=== PATIENT | male | born 1945 | race African-American/Black ===

== ENCOUNTER 2016-11-15 17:45 | Observation (INO) | payer OTHER ==
--- NOTE | ~2016-11-15 | HP ---
History And Physical [id number] [place]. [address] NAME: TONY FISHER BORN SR : 46 STATUS : ADM Kamala PAT#: [id number] AGE: 71 ADM/REG DATE : 11/15/16 MR#: [id number] REPORT SERV DATE: 11/16/16 DICTATED BY: MARIBEL PATRICK DATE: 11/16/16 REPORT STATUS : Draft TRANSCRIBED BY: MODL DATE: 11/16/16 DATE OF ADMISSION: 11/15/2016 SPRINKLER WORKER: Mariama Munoz M.D. CHIEF COMPLAINT: Chest pain and back pain. HISTORY OF PRESENT ILLNESS: Pleasant, black gentleman with known history of CAD, status post CABG twice with surgeries in the late and a redo in [address] Robison at which time he also had an aortic valve replaced with 23 mm pericardial valve. The patient confirms a personal history of one heart attack and possibly 3 stents most recently 08/[address] Covington at [facility]. Those records have been requested. The patient states that on 11/15 in the morning he developed some chest pain and back pain while at rest. He rates the chest pain a 5/10. At time of interview in the CPOU, he rates it a 3/10. It is not reproducible on exam or aggravated by movement or positioning. He reports associated shortness of breath and nausea with some belching. He denies any diaphoresis or dizziness. He reports that he vomited once prior to coming to the hospital and reports some radiation to his right shoulder. He did take aspirin, reports not having any nitroglycerin and he denies being on any platelet inhibitor such as Plavix, Brilinta or Effient following his stent. There is no exertional component expressed. The patient does report that he has a hiatal hernia. The patient denies any stressful or argumentative interaction. The patient confirms a personal history of one heart attack. Denies history of stroke, DVT, or PE. The patient denies any recent fever or chills. No palpitations. No syncopal episodes. Denies PND or orthopnea. Of note, the patient reports having had a stent placed to an unknown vessel by Dr. Covington, 08/2016 at [facility]. He states he was brought to this facility but given no beds he was taken to [facility]. It sounds as though he may have had a stress test first that led to the arteriogram. He does state that he went under a camera in calling [facility] to confirm any antiplatelet agent. The staff at [facility] on [facility] states that his Plavix written by Dr. Covington in 08/2016 was placed on hold by the patient. Attempts made to reach his son at [phone] with no answer to clarify medications. PAST MEDICAL HISTORY: 1. CAD. a. Reports GA x1. b. History of CABG twice 1989 and 2001 x3 with AVR 23 mm pericardial valve by Dr. Robison. 2. Hypertension. 3. Dyslipidemia. 4. Peripheral vascular disease with a stent to a lower extremity. 5. COPD. 6. Recently quit smoking per reports over the past three weeks but uses a nicotine patch 3 times weekly. History And Physical [address] [address] NAME: TONY FISHER BORN SR : 46 STATUS : ADM Kamala PAT#: [id number] AGE: 71 ADM/REG DATE : 11/15/16 MR#: [id number] REPORT SERV DATE: 11/16/16 DICTATED BY: MARIBEL PATRICK DATE: 11/16/16 REPORT STATUS : Draft TRANSCRIBED BY: MARILYN DATE: 11/16/16 PAST SURGICAL HISTORY: 1. CABG 1979 with repeat in 2001 for three vessels and aortic tissue valve replacement in 2001 as well. 2. Iliac stent. 3. Cholecystectomy. 4. Appendectomy. 5. Prostatectomy. SOCIAL HISTORY: The patient is . He states he has 6 children. He is retired. He does not exercise although he is signed up to begin cardiac rehab on 11/22. Reports quitting smoking 3 weeks ago. Has smoked for 50+ years throughout his life. Denies alcohol or illicits although he does occasionally smoke marijuana, most recently around 2015. FAMILY HISTORY: No clear embolic events reported in first-degree relatives. REVIEW OF SYSTEMS: A 14-point review of systems performed, significant for HPI including no blood pressure machine at home to check his blood pressure. Also seemingly on no additional anti-platelet agents since 08/2016 at which time he supposedly had another stent placed by Dr. Covington at [facility] and he has a script for Plavix on hold at [facility] written by Dr. Covington, 08/2016. Otherwise complete review of systems obtained and negative. ALLERGIES: LISINOPRIL, ANGIOEDEMA. CIPRO, SWELLING. HOME MEDICATIONS: Aspirin 81 mg daily, atorvastatin 40 mg nightly, carvedilol 25 mg twice daily, Catapres 0.1 mg twice daily, Reglan 10 mg a.c. and h.s. p.r.n., Protonix 40 mg twice daily, Paxil 20 mg daily, ranitidine 300 mg nightly, Ranexa 500 mg twice daily, Imdur 60 mg t.i.d., and Symbicort 2 puffs twice daily. PHYSICAL EXAMINATION: VITAL SIGNS: Blood pressure 158/71 after Apresoline, heart rate 54, respirations 18, temperature 98.4, O2 saturation 97% on room air, height 5 feet 5 inches, weight 132 pounds, BMI 22. GENERAL: Cooperative, in no apparent distress. Poor historian for healthcare. HEENT: Pupils 2 mm, sclera nonicteric. Nares patent. Moist mucous membranes. No xanthelasma. NECK: Trachea midline, no thyromegaly. No JVD. No bruits. LYMPH: No cervical lymphadenopathy. No supraclavicular lymphadenopathy. RESPIRATORY: Unlabored respirations. Breath sounds clear bilaterally to posterior auscultation. No wheezes or rhonchi. CARDIOVASCULAR: Regular rate. 2/6 murmur best audible at right sternal border with radiation to right carotid. No rub or gallop appreciated. Extremities without edema. Pulses 2+ bilaterally. Right DP pulse 1+, left 2+. ABDOMEN: Soft, nontender, nondistended, normal bowel sounds auscultated throughout. No organomegaly. SKIN: Warm, dry extremities. No pallor, or cyanosis. History And Physical [address] [address] NAME: TONY FISHER BORN SR : 46 STATUS : ADM Kamala PAT#: [id number] AGE: 71 ADM/REG DATE : 11/15/16 MR#: [id number] REPORT SERV DATE: 11/16/16 DICTATED BY: MARIBEL PATRICK DATE: 11/16/16 REPORT STATUS : Draft TRANSCRIBED BY: MARILYN DATE: 11/16/16 PSYCHIATRIC: Appropriate affect. Alert, oriented x3. LABORATORY DATA: Troponin 0.05, 0.05, and 0.04. Potassium 3.6, BUN 10, creatinine 1.21, glucose 116, magnesium 2.1. WBC 4.6, hemoglobin 12.5, hematocrit 38.1, platelet count 103,000. EKG, sinus rhythm, RBBB, LVH, anterior septal infarct. Echo, 03/2016: EF 50%. Mild diastolic dysfunction. Aortic sclerosis without stenosis. PCI, 08/[address] Covington at [facility]. Records requested. Cardiac cath, 08/15/[address] Kirkpatrick with prosthetic aortic valve with no significant gradient, EF 50% with apical aneurysm(no change consistent with 2013). Patent SHREYAS to right PDA, patent vein graft to diagonal, patent LAMBERT to LAD, but beyond anastomosis there is a 60 70% ISR relatively unchanged from 2013. Severely and diffusely diseased free radial to ramus, again unchanged from 2013. PCI, 08/07/[address] Covington, bare metal stent to mid LAD with no evidence of prior stress testing for that admission. ASSESSMENT AND PLAN: 1. Chest pain in patient with complex cardiac and medical history and multiple risk factors. The patient has been observed in the CPOU overnight with flat troponins of 0.05 and 0.04, n.p.o. for MPI today after blood pressure controlled, home if negative study, to follow up with his PCP and Dr. Munoz as appropriate if anything suggestive of ischemia. Cardiology referral will be initiated. 2. Coronary artery disease. Continue home medications. In calling local pharmacy, the patient's Plavix prescription written by Dr. Covington 08/2016 was placed on hold by the patient. We will provide prescription at discharge and patient counseled to remain on aspirin and Plavix until stopped by physician. 3. Hypertension, poorly managed. Resume home medications. 4. Dyslipidemia. Continue statin. 5. Medical noncompliance. Counseled regarding need to remain on Plavix and aspirin forever unless stopped by physician. 6. Murmur, echo 03/2016, EF 50%. Aortic sclerosis without stenosis. 7. Reports recently quit smoking for the last three weeks. Continues to use nicotine 3 days weekly. 8. Cardiac rehab. The patient is scheduled for cardiac rehab on 11/22. The patient was instructed to show up for that appointment and begin an exercise routine. SERAFIN/MARILYN Maribel Patrick, MSN, ATTENDING UROLOGIST-BC / [id number] History And Physical [address] [place]. [address] NAME: TONY FISHER BORN SR : 46 STATUS : ADM Kamala PAT#: [id number] AGE: 71 ADM/REG DATE : 11/15/16 MR#: [id number] REPORT SERV DATE: 11/16/16 DICTATED BY: MARIBEL PATRICK DATE: 11/16/16 REPORT STATUS : Draft TRANSCRIBED BY: MARILYN DATE: 11/16/16 CC: Maribel Patrick, DALILA, ATTENDING UROLOGIST-BC NICOLE Munoz M.D.
[2016-11-15 15:41] LABS: BASOPHILS 0.2 %; BASOPHILS ABSOLUTE 0.01 10/3/uL (0.0-0.16); EOSINOPHILS 1.8 %; EOSINOPHILS ABSOLUTE 0.08 10/3/uL (0.0-0.53); ER CBC TAT 0 Hrs 08 Mins; HEMOGLOBIN 12.5 g/dL (13.6-17.8); LYMPHOCYTES 47.3 %; LYMPHOCYTES ABSOLUTE 2.16 10/3/uL (0.67-4.30); MEAN CORPUS HGB CONC 32.8 g/dL (32.0-36.0); MEAN CORPUSCULAR HEMOGLOB 29.7 pg (26.0-34.0); MEAN PLATELET VOLUME 12.1 fL (9.2-13.0); MONOCYTES 10.9 %; NEUTROPHILS 39.8 %; NEUTROPHILS ABSOLUTE 1.82 10/3/uL (2.02-8.40); PLATELET COUNT 103 10/3/uL (150-400); RED CELL COUNT 4.21 10/6/uL (4.7-6.1); WHITE BLOOD CELLS 4.6 10/3/uL (4.5-10.5)
[2016-11-15 15:42] LABS: HEMATOCRIT 38.1 % (40.0-51.0); MANUAL DIFF NO %; MEAN CORPUSCULAR VOLUME 90.5 fL (80-100)
[2016-11-15 15:53] LABS: PARTIAL THROMBO TIME 30.9 SEC (22.5-37.2); PROTIME (NOT ORD) 13.3 SEC (12.0-14.5)
[2016-11-15 16:04] LABS: CALCIUM, SERUM 9.3 MG/DL (8.5-10.4); CHLORIDE, SERUM 108 MMOL/L (96-112); CO2 (CARBON DIOXIDE) 27 MMOL/L (24-34); CREATININE 1.21 MG/DL (0.70-1.30); GFR AFRICAN AMERICAN 70 ML/MIN (>=60); GFR NON AFRICAN AMERICAN 60 ML/MIN (>=60); GLUCOSE, SERUM 116 MG/DL (60-99); POTASSIUM, SERUM 3.6 MMOL/L (3.5-5.3); SODIUM, SERUM 142 MMOL/L (135-148)
[2016-11-15 16:05] LABS: BUN (BLOOD UREA NITROGEN) 10 MG/DL (6-23); CHEST PAIN PROFILE TAT 0 Hrs 32 Mins; TROPONIN I 0.05 NG/ML (<0.05)
[~2016-11-15 17:45] MED LIST: ADVAIR100 INH; ADVAIR230P INH; ADVAIR250 INH; ADVAIR250 PO; ALB4 PO; APRES25 PO; ASAB PO; CAT1 PO; COREG12 PO; COREG25 PO; COREG3 PO; CREON 20 OR; CRESTOR10 PO; DSS PO; FISH OIL1200 MG PO; FLEXERIL5 MG PO; FLONASE NAS; HALF81 PO; HCTZ12.5 PO; IMDUR30 PO; IMDUR60 PO; IPRA17AE INH; KAPIDEX60 MG PO; L40 PO; LIPITOR40 PO; LISINOPRIL40 MG PO; LOFIBRA54 MG PO; LORTAB10 PO; LOTREL1 CA5 PO; LYRICA100 MG PO; MAX25 PO; MAXIMUM D3 PO; MCZ25 PO; MIRALAXPKT PO; NITROQUICK0.4 MG SL; NITROSTAT0.4 MG SL; NORCO1 TA1 PO; NORV10 PO; NORV5 PO; NTG150 SL; OXYCOD PO; PANCRELIPASE OR; PAX20 PO; PAXIL40 MG PO; PLAVIX PO; PR25 PO; PREV30 PO; PRILOSEC40 MG PO; PRIN20 PO; PROAIR; PROAIR HFA INH; PROTONIX PO; PROZAC PO; RAN500 PO; REG; REG PO; REG5 PO; SIMCOR1 TAB PO; SINEQUAN 75 MG75 MG PO; SINGULAIR1 PO; SPIRO25 PO; SUCR PO; T PO; TEARS NATURA OPH; TEKTURNA300 MG PO; TRAN200 PO; TRANDAT100 PO; VISINE TEARS15 ML OPH; VOLTAREN1 % TOP; ZANTAC150 MG PO; ZESTRIL20 MG PO; ZESTRIL40 MG PO; ZOCOR20 PO
[2016-11-15] MEDS ORDERED: COREG25 PO (20:16)
[2016-11-15] MEDS ORDERED: HALF81 PO (20:16)
[2016-11-15] MEDS ORDERED: PAX20 PO (20:17)
[2016-11-15] MEDS ORDERED: CAT1 PO (20:17)
[2016-11-15] MEDS ORDERED: LIPITOR40 PO (20:17)
[2016-11-15] MEDS ORDERED: RANEXA1000 MG PO (20:18)
[2016-11-15] MEDS ORDERED: ZANTAC300 MG PO (20:18)
[2016-11-15] MEDS ORDERED: REG PO (20:19)
[2016-11-15] MEDS ORDERED: PROTONIX PO (20:19)
[2016-11-15] MEDS ORDERED: IMDUR60 PO (20:21)
[2016-11-15] MEDS ORDERED: SYMBICORT INH (20:22)
[2016-11-16] MEDS ORDERED: PLAVIX PO (16:56)
[2016-11-16] MEDS ORDERED: NTG150 SL (16:58)
[2017-03-07] MEDS ORDERED: SUCR PO (08:57)
[2017-03-07] MEDS ORDERED: NITROSTAT0.4 MG SL (09:01)
[2017-03-07] MEDS ORDERED: CAT1 PO (09:01)
[2017-03-13] MEDS ORDERED: NORV5 PO (17:13)
[2017-03-13] MEDS ORDERED: CAT2 PO (17:17)
[2017-03-13] MEDS ORDERED: IMDUR60 PO (17:18)
[2017-03-13] MEDS ORDERED: HYDRALAZINE100 MG PO (17:21)
[2017-05-04] MEDS ORDERED: HALF81 PO (15:49)
[2017-05-04] MEDS ORDERED: SUCR PO (15:51)
[2017-05-04] MEDS ORDERED: NORV5 PO (15:53)
[2017-05-04] MEDS ORDERED: PLAVIX PO (15:54)
[2017-05-04] MEDS ORDERED: IMDUR60 PO (15:54)
[2017-05-04] MEDS ORDERED: PROTONIX PO (15:55)
[2017-05-04] MEDS ORDERED: CAT2 PO (15:56)
[2017-05-04] MEDS ORDERED: HYDRALAZINE100 MG PO (15:56)
[2017-05-04] MEDS ORDERED: LIPITOR40 PO (15:57)
[2017-05-04] MEDS ORDERED: PAX20 PO (15:57)
[2017-05-04] MEDS ORDERED: RANITIDINE300 MG PO (15:58)
[2017-05-04] MEDS ORDERED: NITROQUICK0.4 MG SL (16:00)
[2017-05-04] MEDS ORDERED: RANEXA1000 MG PO (16:03)
[2017-05-11] MEDS ORDERED: T PO ×2 (10:27→10:28)
[2017-05-11] MEDS ORDERED: LEVSINTAB SL (10:29)
[2017-05-11] MEDS ORDERED: REG5 PO (10:30)
== END 2016-11-16 16:58 | disposition home or self-care (01) ==
LOC: ER 17:45 → CDU1 20:57
PROVIDERS: Emergency Medicine
DX: R07.89 Other chest pain (principal); I25.10 Atherosclerotic heart disease of native coronary artery without angina pectoris; I10 Essential (primary) hypertension; E78.5 Hyperlipidemia, unspecified; I25.2 Old myocardial infarction; Z95.1 Presence of aortocoronary bypass graft; I73.9 Peripheral vascular disease, unspecified; J44.9 Chronic obstructive pulmonary disease, unspecified; Z87.891 Personal history of nicotine dependence; Z90.49 Acquired absence of other specified parts of digestive tract; Z98.890 Other specified postprocedural states; Z88.8 Allergy status to other drugs, medicaments and biological substances; Z79.82 Long term (current) use of aspirin; Z79.899 Other long term (current) drug therapy
CPT/HCPCS: 71020; 78452; 80048; 83735; 84484; 85025; 85610; 85730; 93005; 93017; 96374; 96375; 96376; 99285; A9270-GY; A9502; G0378; J0153; J0360; J2405

== ENCOUNTER 2016-12-11 20:49 | Inpatient (IN) | payer OTHER ==
--- NOTE | ~2016-12-11 | CN ---
Consultation Report [facility] [address] [place]. [address] NAME: TONY MEDELLIN BORN SR : 46 STATUS : ADM IN PAT#: [id number] AGE: 71 ADM/REG DATE : 12/11/16 MR#: [id number] REPORT SERV DATE: 12/13/16 DICTATED BY: DAY COULTER DATE: 12/12/16 REPORT STATUS : Draft TRANSCRIBED BY: MODIsabel DATE: 12/12/16 CARDIOLOGY CONSULTATION NOTE DATE OF CONSULTATION: 12/12/2016 PRIMARY TEXTILE ENGINEER: Dr. Munoz. CHIEF COMPLAINT: "Can't breathe." REASON FOR CONSULTATION: Abnormal troponin. SOURCE: The patient and the chart. HISTORY OF PRESENT ILLNESS: Mr. Medellin is a very pleasant 71-year-old black man with history of coronary artery disease and aortic valve disease, status post coronary artery bypass grafting and a bioprosthetic aortic valve replacement in [address] Robison at [facility]. He has also had stents since then. His most recent catheterization was in August 2016 at [facility] and he was treated medically. He was in his usual state of health until last night when he "could not breathe." He came to [facility] and was admitted for further care. He has had some wheezing, coughing, and producing clear sputum and increasing shortness of breath over the last few days. He has not had any swelling. He did have sweats one night. He did have right-sided chest pain, described as dull, 8/10 in severity radiating to the right arm, lasting hours at a time. No syncope or dizziness. No temperature. REVIEW OF SYSTEMS: All other systems are negative. ALLERGIES: LISINOPRIL CAUSED ANGIOEDEMA. CIPROFLOXACIN. MEDICATIONS: At home included aspirin, atorvastatin, carvedilol, clonidine, Plavix, isosorbide, metoclopramide, pantoprazole, paroxetine, ranitidine, and Ranexa. CARDIAC RISK FACTORS: Hypertension, cholesterol, former tobacco. Denies diabetes or family history. SOCIAL HISTORY: The patient lives in [place]. He is . He has six children, alive and well. He is retired. FAMILY HISTORY: Negative for coronary artery disease at young age. PAST MEDICAL HISTORY: Significant for coronary artery disease, status post coronary bypass grafting and aortic valve replacement, bioprosthetic [address] Robison, two stents; last catheterization in October 2015 at [facility]. Results not available. The patient reports Consultation Report [place] [address] [place]. [address] NAME: TONY MEDELLIN SR : 46 STATUS : ADM IN PAT#: [id number] AGE: 71 ADM/REG DATE : 12/11/16 MR#: [id number] REPORT SERV DATE: 12/13/16 DICTATED BY: DAY COULTER DATE: 12/12/16 REPORT STATUS : Draft TRANSCRIBED BY: MODIsabel DATE: 12/12/16 that he was treated medically. Prostate surgery for cancer, reportedly in remission in 1999. Neck surgery with screws. Lymph node removal. Status post appendectomy. He has other medical problems detailed in Dr. Lexx Parikh's note including congestive heart failure, renal artery stenosis with stent placement, rheumatoid arthritis, nephrolithiasis, benign prostatic hypertrophy, pancreatitis, hypothyroidism, thoracic aortic aneurysm, and KADY inhibitor induced angioedema; peripheral artery disease, status post angioplasty and stent placement in the legs, per Dr. Guerin; multiple GI bleed with peptic ulcer disease, colitis, colon polyps, and a Megan-Fleming tear, per Dr. Clement. PHYSICAL EXAMINATION: GENERAL: He is a well-developed, well-nourished, elderly black man, in no acute distress. VITAL SIGNS: Blood pressure 179/91, pulse 78, temperature 98.4, weight is 60 kg, height is 165 cm. HEENT: Sclerae anicteric. Lips without cyanosis. Carotids 2+ and symmetrical with healed surgical scars posterior midline. NECK: No JVD. No thyromegaly. LUNGS: Few rhonchi, rales at the bases. No use of accessory muscles. HEART: Regular rate and rhythm with 2/6 systolic murmur. No heaves or thrills. ABDOMEN: Positive bowel sounds. Soft, nontender. EXTREMITIES: Pulses 2+ and symmetrical. No cyanosis, clubbing, or edema. BACK: No CVA tenderness. MUSCULOSKELETAL: Good tone. NEURO: Alert and oriented x3. IMAGING: EKG reveals sinus rhythm with PACs, right bundle-branch block, left anterior fascicular block, LVH with strain. This appears similar to EKG in October 2016. The echocardiogram reveals borderline left ventricular systolic function, LVEF of 50%, moderate LVH, normal RV chamber size and systolic function, mild aortic stenosis, and mild aortic insufficiency and mild aortic stenosis. LABORATORY EXAMINATION: We also have the laboratory examination which included the urinalysis. Specific gravity of 1.011, pH 6.0 dip negative with a CPK 118, MB 4.7. Troponin I of 1.2. The chest x-ray revealing pulmonary edema, significantly improved, residual vascular congestion, and residual small effusions. The BNP level of 1943, the procalcitonin of 1.54. The sodium 142, potassium 3.7, chloride 105, CO2 of 28, glucose 145, BUN 13, creatinine 1.16. TSH of 1.18. The white count is 6.3, hemoglobin 12.9, hematocrit 38.3, platelets 134,000. INR 1.1. Blood gas; pH 7.41, pCO2 of 42, pO2 of 73, and oxygen saturation 94%. Strep pneumonia antigen negative. Legionella antigen urine negative. IMPRESSION: 1. Hypertensive urgency. Consultation Report [address] [address] NAME: TONY MEDELLIN BORN SR : 46 STATUS : ADM IN [facility]#: [id number] AGE: 71 ADM/REG DATE : 12/11/16 MR#: [id number] REPORT SERV DATE: 12/13/16 DICTATED BY: DAY COULTER DATE: 12/12/16 REPORT STATUS : Draft TRANSCRIBED BY: MARILYN DATE: 12/12/16 2. Pulmonary edema, improving with diuresis. 3. History of coronary artery disease, status post coronary artery bypass grafting and angioplasty and stenting. 4. Small elevation of troponin with normal CPK and MB of unclear significance. 5. Status post bioprosthetic aortic valve replacement in 2001 with his coronary artery bypass grafting operation. Only mild aortic stenosis and aortic insufficiency by most recent echo. 6. Left ventricular ejection fraction of 50% by most recent echo. 7. History of renal artery stenosis, status post angioplasty and stenting. 8. History of peripheral vascular disease. 9. Remote prostate cancer. 10.Cardiac risk factors including hypertension, cholesterol, and former tobacco. RECOMMENDATIONS: 1. Diuresis with IV Lasix as you are doing. 2. Evaluate for possible infection. 3. Check renal artery ultrasound to look for any evidence of renal artery stenosis. 4. Check serial EKGs and enzymes. 5. Control blood pressure. 6. Echocardiogram already done. BN/MODL Day Coulter M.D. / [id number] CC: Alex Gabriel M.D.
--- NOTE | ~2016-12-11 | HP ---
History And Physical [address] [place]. [address] NAME: TONY FISHER BORN SR : 46 STATUS : ADM IN [facility]#: [id number] AGE: 71 ADM/REG DATE : 12/11/16 MR#: [id number] REPORT SERV DATE: 12/12/16 DICTATED BY: CLARISSE ABDALLA DATE: 12/12/16 REPORT STATUS : Draft TRANSCRIBED BY: MODL DATE: 12/12/16 DATE OF ADMISSION: 12/11/2016 CHIEF COMPLAINT: A 71-year-old male presenting with increasing shortness of breath. HISTORY OF PRESENT ILLNESS: The patient's history was obtained through careful interview with the patient, coupled with review of [facility] medical records. The patient, just on the day prior to admission, began to develop increasing shortness of breath characterized both by dyspnea on exertion as well as orthopnea, paroxysmal nocturnal dyspnea, and a cough productive of a clear sputum. He describes both abdominal pain and chest discomfort, but both of these seem to be exacerbated by coughing. The chest pain is a sharp midchest pain without radiation, 6/10 severity, and the abdominal pain is in his epigastric area in the middle, a soreness quality, 4/10 severity. No lower extremity edema is appreciated. No abdominal swelling. No confusion, but he has felt lightheaded. No fevers or chills. REVIEW OF SYSTEMS: Otherwise, a 14-point review of systems was obtained and was negative. PAST MEDICAL HISTORY: 1. COPD. 2. Coronary artery disease, status post CABG and history of stents, followed by [facility]. 3. Elevated cholesterol. 4. Hypertension. 5. Peripheral arterial disease with leg stent placement under the care of Dr. Guerin. 6. Multiple GI bleeds with peptic ulcer disease, colitis, colon polyps, a Megan-Fleming. Seen by Dr. Clement. 7. Aortic valve replacement with tissue valve. 8. Systolic congestive heart failure, history of ejection fraction 45%. 9. Renal artery stenosis with stent placement. 10.Rheumatoid arthritis. 11.Nephrolithiasis. 12.Benign prostatic hypertrophy. 13.Pancreatitis. 14.Subclinical hypothyroidism. 15.Neuropathy. 16.Thoracic aortic aneurysm, 4 cm. 17.KADY inhibitor-induced angioedema. PAST SURGICAL HISTORY: History And Physical [address] [place]. [address] NAME: TONY FISHER BORN SR : 46 STATUS : ADM IN PAT#: [id number] AGE: 71 ADM/REG DATE : 12/11/16 MR#: [id number] REPORT SERV DATE: 12/12/16 DICTATED BY: CLARISSE ABDALLA DATE: 12/12/16 REPORT STATUS : Draft TRANSCRIBED BY: MODL DATE: 12/12/16 1. CABG in 1989 with a redo in 2001. 2. Cholecystectomy. 3. Appendectomy. 4. Prostatectomy/TURP. 5. Knee surgery. 6. Tissue aortic valve replacement. 7. Penile prosthesis. 8. Neck lymph node dissection. ALLERGIES: KADY INHIBITOR CAUSES ANGIOEDEMA AND THE PATIENT HAS AN ALLERGY TO CIPRO. SOCIAL HISTORY: Quit smoking in 2013. Quit alcohol in 2006. He started smoking when he was only 14 years old. He lives alone right now. His about two years ago. He used to drive a truck. He does smoke marijuana. He has six children, they all seem to live locally. FAMILY HISTORY: Father and brother with heart disease. CURRENT MEDICATIONS: Include aspirin 81 mg p.o. daily, Lipitor 40 mg p.o. daily, Coreg 25 mg p.o. b.i.d., clonidine 0.1 mg p.o. b.i.d., Plavix 75 mg p.o. daily, Reglan 10 mg p.o. at bedtime and before meals as needed, isosorbide mononitrate 60 mg p.o. t.i.d., Protonix 40 mg p.o. daily, Paxil 20 mg p.o. daily, Zantac 300 mg p.o. q.h.s., Ranexa 1000 mg p.o. b.i.d. PHYSICAL EXAMINATION: VITAL SIGNS: Temperature 98.2, pulse 117, blood pressure 240/139, respiratory rate 35, O2 saturation 100% on 15 L nasal cannula. GENERAL: An ill-appearing male with respiratory distress. HEENT: Pupils equal, round, and reactive to light. No conjunctival pallor. No scleral icterus. Nares are patent. Oropharynx is clear of obstruction. Moist mucous membranes. NECK: Trachea midline. No thyromegaly. LYMPH: No cervical lymphadenopathy. No supraclavicular lymphadenopathy. RESPIRATORY: The patient has a complicated respiratory examination. It does seem that he has dense wet rales at the base of lungs, but also scattered expiratory wheezes, prolonged expiratory phase, harsh upper respiratory rhonchi, and a very labored respiratory effort. CARDIOVASCULAR: Tachycardic, regular rhythm. No murmurs, rubs, or gallops. No current extremity edema is appreciated. ABDOMEN: Flat, nontender, nondistended. No hepatosplenomegaly. DERMATOLOGICAL: Warm and dry extremities. No pallor, no cyanosis. PSYCHIATRIC: Normal affect. Good mood. Alert and oriented x3. LABORATORY DATA: Brain natriuretic peptide 926. Troponin 0.05. INR 1.0. White blood cell count 7.3, hemoglobin 14, hematocrit 44, platelets 141. Sodium 142, potassium 4.2, chloride 107, bicarb 25, BUN 12, creatinine 0.49, glucose 171. ABG demonstrates pH 7.27, a PaCO2 of 44, a PaO2 of 316, and a bicarb of 19 on oxygen. STUDIES: Chest x-ray by my own evaluation shows cardiomegaly, pulmonary edema, bilateral effusions right greater than left, cephalization, there are also COPD changes. History And Physical [address] [place]. [address] NAME: TONY FISHER BORN SR : 46 STATUS : ADM IN [facility]#: [id number] AGE: 71 ADM/REG DATE : 12/11/16 MR#: [id number] REPORT SERV DATE: 12/12/16 DICTATED BY: CLARISSE ABDALLA DATE: 12/12/16 REPORT STATUS : Draft TRANSCRIBED BY: MARILYN DATE: 12/12/16 ASSESSMENT AND PLAN: 1. Hypoxic respiratory failure. Place on BiPAP in the IMCU. 2. Chronic obstructive pulmonary disease exacerbation. Place on IV Solu-Medrol, duo nebulizers, doxycycline. 3. Systolic congestive heart failure exacerbation, history of ejection fraction 45%. Recheck an echocardiogram to define function. Continue Coreg. Place on IV diuretic. Hold KADY inhibitor and ARB secondary to angioedema. 4. Hypertensive urgency. Use p.r.n. medications. Provide supportive care. 5. Aortic valve replacement with tissue valve. Check an echocardiogram. HILL/MARILYN Clarisse Abdalla M.D. / [id number] CC: Alex Gabriel M.D. [facility]
--- NOTE | ~2016-12-11 | DS ---
Discharge Summary [facility] [address] [place]. [address] NAME: TONY FISHER BORN SR : 46 STATUS : DIS IN PAT#: [id number] AGE: 71 ADM/REG DATE : 12/11/16 MR#: [id number] REPORT SERV DATE: 12/17/16 DICTATED BY: HARDEEP SAM DATE: 12/16/16 REPORT STATUS : Draft TRANSCRIBED BY: MODL DATE: 12/16/16 ADMISSION DATE: 12/11/2016 DISCHARGE DATE: 12/16/2016 CONDITION ON DISCHARGE: Stable. DISPOSITION: Discharged to home. ADVICE ON DISCHARGE: To follow up with Dr. Shepard, Vascular Surgery, next week on 12/19/2016 for bilateral renal stent placement. The patient is a candidate for bilateral renal artery stent placement as he has bilateral renal artery stenosis. DIAGNOSES ON DISCHARGE: 1. Uncontrolled hypertension/difficult to control hypertension - the patient is on multiple high doses of antihypertensive medications right now. Part of this is definitely because of bilateral renal artery stenosis. The patient is scheduled for stenting next week by Dr. Shepard in his office. I have spoken with Dr. Shepard and he says it is okay for the patient to continue taking Plavix as of now. His medications on discharge will be dictated in the following paragraphs. 2. Chronic diastolic heart failure. 3. Coronary artery disease, status post coronary artery bypass graft and history of stenting - stable at this time. His troponin Is are coming down and he is only for medical management per Cardiology right now. 4. Chronic obstructive pulmonary disease. 5. Elevated cholesterol. 6. Peripheral arterial disease, status post stent placement in the leg. 7. History of gastrointestinal bleed in the past. 8. History of aortic valve replacement with tissue valves. 9. History of systolic congestive heart failure also with an ejection fraction of 45% in the past even though it has improved to 50% now. 10.Rheumatoid arthritis. 11.Nephrolithiasis. 12.Benign prostatic hypertrophy. The patient is also not a candidate for KADY inhibitor or ARB therapy secondary to angioedema secondary to both of these medications. BRIEF HOSPITAL COURSE: The patient is a 71-year-old male patient who was admitted with signs and symptoms as outlined in history and physical exam. Essentially, he was admitted with shortness of breath, started on diuretics, and supportive and symptomatic therapy. Cardiology was consulted. As he did complain of chest discomfort, he was started on therapy for managing coronary artery disease conservatively, on med management only as of now. The patient underwent an echocardiogram that shows an ejection fraction of 50% as of now. Discharge Summary [facility] [address] [place]. [address] NAME: TONY FISHER BORN SR : 46 STATUS : DIS IN PAT#: [id number] AGE: 71 ADM/REG DATE : 12/11/16 MR#: [id number] REPORT SERV DATE: 12/17/16 DICTATED BY: HARDEEP SAM DATE: 12/16/16 REPORT STATUS : Draft TRANSCRIBED BY: MODIsabel DATE: 12/16/16 The patient also has had difficulty controlling his blood pressure and has been on multiple medications for this, and at this time, we will have to go ahead and continue adjusting his medicine until he receives his bilateral renal artery stenting, which will happen next week. For now, his blood pressure is under fairly good control with the current regimen of medications and he is being sent on the following medications. New medications that he will be on include: Aldactone 25 mg once a day, hydralazine 25 mg p.o. t.i.d., Norvasc or amlodipine 10 mg once a day and increasing his Imdur 60 mg tablets to two pills twice a day or 120 mg p.o. b.i.d. The medication that has been discontinued include clonidine patch and also clonidine. He will continue his Coreg 25 mg p.o. b.i.d. also as of now. The patient will also continue his Lipitor 40 mg once a day, Paxil 20 mg once a day, Plavix 75 mg once a day, potassium 10 mEq once a day, Protonix 40 mg p.o. b.i.d., and Ranexa 500 mg ER tablet 1000 mg p.o. b.i.d. The most recent labs I have on this patient include the following: His CBC today shows a WBC count of 6.2, hemoglobin 12.6, hematocrit 37, and platelet count of 151. His electrolyte profile shows a sodium of 142, potassium 3.9, BUN 18, and creatinine 1.2. Consults obtained during hospitalization include consultation by Dr. Adam Hayes for renal artery stenosis and he suggested bilateral renal stent placement and also consultation by Cardiology at this time. The most recent echocardiogram that this patient had shows the following: His ejection fraction is estimated at 50%. He does have borderline left ventricular systolic function. The patient does have moderate LVH, normal right ventricular chamber size and systolic function, and mild aortic sclerosis and mild aortic stenosis. On the day of discharge, he is asymptomatic, he is chest pain-free, and he is able to ambulate without getting short of breath. He is ambulatory in hallways and within his room and feels well enough to go home, and hence, he is being discharged on the following medications with advice to follow up with Dr. Shepard next week for bilateral renal artery stenting as above. I have spent about 40 minutes in coordinating discharge care of this patient including face- to-face encounter and summarizing this discharge. GIOVANNA/MARILYN Hardeep Sam M.D. / [id number] CC: Hardeep Sam M.D.
--- NOTE | ~2016-12-11 | CN ---
Consultation Report [facility] [address] [place]. [address] NAME: TONY MEDELLIN BORN SR : 46 STATUS : ADM IN PAT#: [id number] AGE: 71 ADM/REG DATE : 12/11/16 MR#: [id number] REPORT SERV DATE: 12/15/16 DICTATED BY: DIAZ SINGLETON DATE: 12/15/16 REPORT STATUS : Draft TRANSCRIBED BY: MODL DATE: 12/15/16 DATE OF CONSULTATION: 12/15/2016 REASON FOR CONSULT: Renal artery stenosis. HISTORY OF PRESENT ILLNESS: Mr. Medellin is a very pleasant 71-year-old male with complicated medical history as outlined below. He has had previous bypass surgery and AVR with an EF of 45%, COPD with ongoing tobacco abuse, and previous PAD with right iliac stent placement. He also has a history of a 4 cm thoracic artery aneurysm. His vascular surgeon is Dr. Guerin. He denies previous knowledge of renal artery stents, although it is listed in previous histories and physicals in the medical record. Briefly, he was admitted here on 12/11/2016 with volume overload. He was treated for CHF and COPD exacerbations. He required BiPAP initially and is significantly much improved. He underwent cardiac catheterization in this admission, which showed occluded LAMBERT and open SHREYAS-medical management. He is now out on the floor on [address] [place] [address]. As part of a workup for ongoing [id number] hypertension, Doppler renal artery ultrasound was done on 12/13/2016, which showed right kidney at 9.2 cm with RAR 4.6, PSV 284 cm/second and resistive index of 0.78. Left kidney 9.1 cm, RAR 5.7, PSV 352 cm/second, and RI 0.80. Nephrology is consulted for renal artery stenosis management. PAST MEDICAL HISTORY: 1. CABG, 1979 and 2001. EF 45%. 2. COPD with ongoing tobacco abuse. 3. Hypertension. 4. Hyperlipidemia. 5. Peripheral vascular disease with right iliac stent. 6. AVR in 1999. 7. Rheumatoid arthritis per chart. 8. Prostate cancer. 9. Thoracic and aortic aneurysm. 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 CURRENT MEDICATIONS: Include Norvasc 10 mg a day, aspirin, Lipitor, Coreg, Catapres patch #3, Plavix, sliding-scale insulin, Ranexa, Paxil, Protonix, and Imdur. FAMILY HISTORY: No ESRD. SOCIAL HISTORY: He is a , retired. Continues to smoke and lives in [place]. REVIEW OF SYSTEMS: Significant for events as per HPI. PHYSICAL EXAMINATION: VITAL SIGNS: Temperature 97.4, pulse 56, respirations 18, blood pressure 127/58, 95% Consultation Report [address] [place]. [address] NAME: TONY MEDELLIN BORN SR : 46 STATUS : ADM IN LOCATED WITHIN [facility]#: [id number] AGE: 71 ADM/REG DATE : 12/11/16 MR#: [id number] REPORT SERV DATE: 12/15/16 DICTATED BY: DIAZ SINGLETON DATE: 12/15/16 REPORT STATUS : Draft TRANSCRIBED BY: MARILYN DATE: 12/15/16 saturation on room air. GENERAL: He is a pleasant male, awake, alert, oriented, and cooperative with the exam. He is in no distress. Good historian. Sclerae without icterus. Conjunctivae not injected. Oropharynx is clear. No JVD. He has diffuse bilateral rhonchi without dyspnea or tachypnea at rest on room air. HEART: Rate bradycardic, rhythm regular, 2/6 murmur. ABDOMEN: Soft, nontender, and nondistended. Bowel sounds present throughout without rebound, guarding, peritoneal signs. EXTREMITIES: Showed no edema. SKIN: Shows no rash. There is no Hardwick catheter in place. MUSCULOSKELETAL: Shows no active tenosynovitis or gout. Mood and affect are appropriate. LABORATORY DATA: Sodium 143, potassium 3.9, bicarbonate 25, BUN 17, creatinine 1.1, GFR 64 mL/minute, calcium 9.1, albumin 3.4. Urinalysis shows no blood or protein. BNP 1943, white count 11.2 thousand, hemoglobin 13.2, platelets 166,000. ASSESSMENT AND PLAN: Mr. Medellin has hypertension, probable chronic kidney disease stage 2, renal artery stenosis, chronic obstructive pulmonary disease with ongoing tobacco abuse, atherosclerotic cardiovascular disease with previous CABG and AVR, ejection fraction 45%, peripheral artery disease, and thoracic aortic aneurysm. Recommend vascular consultation with Dr. Guerin. I suspect Mr. Medellin most likely needs renal arteriogram and intervention on his bilateral renal artery stenosis to help improve blood pressure control. He is on Plavix and we will defer to vascular whether or not to proceed with inpatient versus outpatient workup. We will be available as needed, we will sign off. Please call back if problems, questions, or concerns. Thank you for consult. PARVIZ/MARILYN Diaz Singleton M.D. / [id number] CC: Nancie Ospina M.D.
[~2016-12-11 20:49] MED LIST changes: +RANEXA1000 MG PO; +SYMBICORT INH; +ZANTAC300 MG PO
[2016-12-11 21:29] LABS: BE (BASE EXCESS) -6.9 MEQ/L (0 +/- 2.5); CARBOXYHEMOGLOBIN 2.3 % (0-3); DEVICE NRB; HCO3 (ACTUAL BICARBONATE) 19.8 MEQ/L (23-27); HEMOBLOGIN CONTENT 13.8 G/DL (14-18); INSTRUMENT SERIAL # 8087; METHEMOGLOBIN 0.3 % (0-3); O2 CONTENT 19.6 VOL% (18-24); PCO2 (CO2 TENSION) 44 MMHG (35-45); PO2 (O2 TENSION) 316 MMHG (79-93); SAMPLE Arterial; pH 7.27 (7.37-7.43)
[2016-12-11 21:32] LABS: BASOPHILS 0.4 %; BASOPHILS ABSOLUTE 0.03 10/3/uL (0.0-0.16); EOSINOPHILS 3.6 %; EOSINOPHILS ABSOLUTE 0.26 10/3/uL (0.0-0.53); ER CBC TAT 0 Hrs 15 Mins; HEMATOCRIT 43.7 % (40.0-51.0); HEMOGLOBIN 14.5 g/dL (13.6-17.8); IMMATURE GRANULOCYTES 0.3 %; IMMATURE GRANULOCYTES ABSOLUTE 0.02 10/3/uL (0.0-0.11); LYMPHOCYTES 62.1 %; LYMPHOCYTES ABSOLUTE 4.52 10/3/uL (0.67-4.30); MANUAL DIFF NO %; MEAN CORPUS HGB CONC 33.2 g/dL (32.0-36.0); MEAN CORPUSCULAR HEMOGLOB 30.6 pg (26.0-34.0); MEAN CORPUSCULAR VOLUME 92.2 fL (80-100); MEAN PLATELET VOLUME 12.8 fL (9.2-13.0); MONOCYTES 7.6 %; MONOCYTES ABSOLUTE 0.55 10/3/uL (0.21-1.20); PLATELET COUNT 141 10/3/uL (150-400); RBC DISTRIBUTION WIDTH 15.6 % (12.0-16.0); RED CELL COUNT 4.74 10/6/uL (4.7-6.1); WHITE BLOOD CELLS 7.3 10/3/uL (4.5-10.5)
[2016-12-11] MEDS ORDERED: COREG25 PO (21:36)
[2016-12-11] MEDS ORDERED: PROTONIX PO (21:37)
[2016-12-11] MEDS ORDERED: HALF81 PO (21:37)
[2016-12-11] MEDS ORDERED: ZANTAC300 MG PO (21:37)
[2016-12-11] MEDS ORDERED: LIPITOR40 PO (21:37)
[2016-12-11 21:38] LABS: PARTIAL THROMBO TIME 27.6 SEC (22.5-37.2); PROTIME (NOT ORD) 13.2 SEC (12.0-14.5)
[2016-12-11] MEDS ORDERED: RANEXA1000 MG PO (21:38)
[2016-12-11] MEDS ORDERED: REG PO (21:38)
[2016-12-11] MEDS ORDERED: PLAVIX PO (21:38)
[2016-12-11] MEDS ORDERED: CAT1 PO (21:38)
[2016-12-11] MEDS ORDERED: IMDUR60 PO (21:39)
[2016-12-11] MEDS ORDERED: PAX20 PO (21:39)
[2016-12-11] MEDS ORDERED: *UNABLE3 (21:41)
[2016-12-11 21:53] LABS: PLATELET ESTIMATE SLT DEC (ADEQUATE); TEARDROP SHAPED RBCS FEW (3-10/OIF)
[2016-12-11 21:54] LABS: BURR CELLS 1+ (3-10/OIF) (0-2/OIF)
[2016-12-11 22:11] LABS: BUN (BLOOD UREA NITROGEN) 12 MG/DL (6-23); CALCIUM, SERUM 8.9 MG/DL (8.5-10.4); CHLORIDE, SERUM 107 MMOL/L (96-112); CO2 (CARBON DIOXIDE) 25 MMOL/L (24-34); CREATININE 1.49 MG/DL (0.70-1.30); GFR AFRICAN AMERICAN 54 ML/MIN (>=60); GFR NON AFRICAN AMERICAN 47 ML/MIN (>=60); SODIUM, SERUM 142 MMOL/L (135-148)
[2016-12-11 22:12] LABS: GLUCOSE, SERUM 171 MG/DL (60-99); POTASSIUM, SERUM 4.2 MMOL/L (3.5-5.3)
[2016-12-11 22:14] LABS: CHEST PAIN PROFILE TAT 0 Hrs 57 Mins; TROPONIN I 0.05 NG/ML (<0.05)
[2016-12-11 22:47] LABS: D-DIMER QUANTITATIVE 2.27 ug/mLFEU (< 0.50)
[2016-12-12 04:09] LABS: BE (BASE EXCESS) 1.2 MEQ/L (0 +/- 2.5); BIPAP 16/5 cm.H2O; CARBOXYHEMOGLOBIN 1.7 % (0-3); HEMOBLOGIN CONTENT 13.7 G/DL (14-18); INSTRUMENT SERIAL # 8083; METHEMOGLOBIN 0.3 % (0-3); O2 CONTENT 17.8 VOL% (18-24); OPERATOR ID 14661; PCO2 (CO2 TENSION) 42 MMHG (35-45); PO2 (O2 TENSION) 73 MMHG (79-93); SAMPLE Arterial; pH 7.41 (7.37-7.43)
[2016-12-12 04:17] LABS: BASOPHILS 0.2 %; BASOPHILS ABSOLUTE 0.01 10/3/uL (0.0-0.16); EOSINOPHILS 0 %; HEMOGLOBIN 12.9 g/dL (13.6-17.8); IMMATURE GRANULOCYTES 0.2 %; IMMATURE GRANULOCYTES ABSOLUTE 0.01 10/3/uL (0.0-0.11); LYMPHOCYTES 12.8 %; MEAN CORPUS HGB CONC 33.7 g/dL (32.0-36.0); MEAN CORPUSCULAR HEMOGLOB 30.2 pg (26.0-34.0); MEAN CORPUSCULAR VOLUME 89.7 fL (80-100); MEAN PLATELET VOLUME 11.9 fL (9.2-13.0); MONOCYTES 2.2 %; MONOCYTES ABSOLUTE 0.14 10/3/uL (0.21-1.20); NEUTROPHILS 84.6 %; PLATELET COUNT 134 10/3/uL (150-400); RBC DISTRIBUTION WIDTH 15.7 % (12.0-16.0); RED CELL COUNT 4.27 10/6/uL (4.7-6.1); WHITE BLOOD CELLS 6.3 10/3/uL (4.5-10.5)
[2016-12-12 04:21] LABS: HEMATOCRIT 38.3 % (40.0-51.0); MANUAL DIFF NO %
[2016-12-12 04:25] LABS: INTERNATIONAL NORMAL RATI 1.1 UNITS (-); PROTIME (NOT ORD) 13.8 SEC (12.0-14.5)
[2016-12-12 04:42] LABS: A/G RATIO 0.9 (0.7-1.9); ALBUMIN 3.4 G/DL (3.5-5.0); BUN (BLOOD UREA NITROGEN) 13 MG/DL (6-23); CALCIUM, SERUM 8.9 MG/DL (8.5-10.4); CHLORIDE, SERUM 105 MMOL/L (96-112); CO2 (CARBON DIOXIDE) 28 MMOL/L (24-34); CREATININE 1.16 MG/DL (0.70-1.30); GFR AFRICAN AMERICAN 74 ML/MIN (>=60); GFR NON AFRICAN AMERICAN 63 ML/MIN (>=60); GLOBULIN 3.8 G/DL (2.5-4.1); GLUCOSE, SERUM 145 MG/DL (60-99); POTASSIUM, SERUM 3.7 MMOL/L (3.5-5.3); SGOT(AST) 38 U/L (5-40); SGPT(ALT) 36 U/L (5-65); SODIUM, SERUM 142 MMOL/L (135-148); TOTAL PROTEIN 7.2 G/DL (6.0-8.5)
[2016-12-12 04:44] LABS: ALKALINE PHOSPHATASE 163 U/L (45-117)
[2016-12-12 04:58] LABS: PROCALCITONIN 1.54 ng/mL (<0.5)
[2016-12-12 12:02] LABS: CK-MB 4.7 NG/ML; CPK 118 U/L (0-200)
[2016-12-12] MEDS ORDERED: DUONEB INH (13:39)
[2016-12-12 18:35] LABS: WBC (NOT ORDERED) (RFLEX) 0 (0-5)
[2016-12-12 19:03] LABS: ASCORBIC ACID (UR NOT ORDER) NEG (NEG); BILIRUBIN, URINE NEGATIVE (NEG); KETONE, URINE NEGATIVE (NEG); LEUKOCYTE ESTERASE(NOT OR NEG (NEG)
[2016-12-12 22:12] LABS: CK-MB 2.3 NG/ML; CPK 82 U/L (0-200); TROPONIN I 1.25 NG/ML (<0.05)
[2016-12-13 06:55] LABS: BASOPHILS 0 %; EOSINOPHILS 0.1 %; EOSINOPHILS ABSOLUTE 0.01 10/3/uL (0.0-0.53); HEMATOCRIT 36.4 % (40.0-51.0); HEMOGLOBIN 12.3 g/dL (13.6-17.8); IMMATURE GRANULOCYTES 0.5 %; IMMATURE GRANULOCYTES ABSOLUTE 0.06 10/3/uL (0.0-0.11); LYMPHOCYTES ABSOLUTE 1.64 10/3/uL (0.67-4.30); MEAN CORPUS HGB CONC 33.8 g/dL (32.0-36.0); MEAN CORPUSCULAR VOLUME 88.8 fL (80-100); MEAN PLATELET VOLUME 11.6 fL (9.2-13.0); MONOCYTES 5.8 %; MONOCYTES ABSOLUTE 0.74 10/3/uL (0.21-1.20); NEUTROPHILS 80.6 %; NEUTROPHILS ABSOLUTE 10.21 10/3/uL (2.02-8.40); PLATELET COUNT 150 10/3/uL (150-400); RBC DISTRIBUTION WIDTH 15.8 % (12.0-16.0)
[2016-12-13 06:57] LABS: WHITE BLOOD CELLS 12.7 10/3/uL (4.5-10.5)
[2016-12-13 06:58] LABS: MANUAL DIFF NO %
[2016-12-13 07:03] LABS: PARTIAL THROMBO TIME 63.3 SEC (22.5-37.2)
[2016-12-13 07:12] LABS: BUN (BLOOD UREA NITROGEN) 20 MG/DL (6-23); CALCIUM, SERUM 8.9 MG/DL (8.5-10.4); CHLORIDE, SERUM 102 MMOL/L (96-112); CK-MB 1.7 NG/ML; CO2 (CARBON DIOXIDE) 28 MMOL/L (24-34); CPK 71 U/L (0-200); CREATININE 1.42 MG/DL (0.70-1.30); GFR AFRICAN AMERICAN 58 ML/MIN (>=60); GFR NON AFRICAN AMERICAN 50 ML/MIN (>=60); GLUCOSE, SERUM 142 MG/DL (60-99); POTASSIUM, SERUM 3.8 MMOL/L (3.5-5.3); SODIUM, SERUM 139 MMOL/L (135-148)
[2016-12-13 14:12] LABS: CK-MB 1.7 NG/ML; CPK 62 U/L (0-200)
[2016-12-13 14:13] LABS: TROPONIN I 0.36 NG/ML (<0.05)
[2016-12-14 04:38] LABS: BASOPHILS 0 %; EOSINOPHILS 0 %; HEMATOCRIT 39.1 % (40.0-51.0); HEMOGLOBIN 13.2 g/dL (13.6-17.8); IMMATURE GRANULOCYTES 0.3 %; IMMATURE GRANULOCYTES ABSOLUTE 0.03 10/3/uL (0.0-0.11); LYMPHOCYTES 28.1 %; LYMPHOCYTES ABSOLUTE 3.15 10/3/uL (0.67-4.30); MEAN CORPUS HGB CONC 33.8 g/dL (32.0-36.0); MEAN CORPUSCULAR HEMOGLOB 30.7 pg (26.0-34.0); MEAN CORPUSCULAR VOLUME 90.9 fL (80-100); MEAN PLATELET VOLUME 11.9 fL (9.2-13.0); MONOCYTES 8.2 %; MONOCYTES ABSOLUTE 0.92 10/3/uL (0.21-1.20); NEUTROPHILS 63.4 %; PLATELET COUNT 166 10/3/uL (150-400); WHITE BLOOD CELLS 11.2 10/3/uL (4.5-10.5)
[2016-12-14 04:40] LABS: MANUAL DIFF NO %
[2016-12-14 05:04] LABS: BUN (BLOOD UREA NITROGEN) 20 MG/DL (6-23); CALCIUM, SERUM 9.1 MG/DL (8.5-10.4); CHLORIDE, SERUM 107 MMOL/L (96-112); CO2 (CARBON DIOXIDE) 26 MMOL/L (24-34); CREATININE 1.19 MG/DL (0.70-1.30); GFR AFRICAN AMERICAN 71 ML/MIN (>=60); GFR NON AFRICAN AMERICAN 62 ML/MIN (>=60); POTASSIUM, SERUM 3.4 MMOL/L (3.5-5.3); SODIUM, SERUM 143 MMOL/L (135-148)
[2016-12-14 05:07] LABS: GLUCOSE, SERUM 106 MG/DL (60-99)
[2016-12-15 05:16] LABS: BUN (BLOOD UREA NITROGEN) 17 MG/DL (6-23); CALCIUM, SERUM 9.1 MG/DL (8.5-10.4); CHLORIDE, SERUM 107 MMOL/L (96-112); CO2 (CARBON DIOXIDE) 25 MMOL/L (24-34); CREATININE 1.15 MG/DL (0.70-1.30); GFR AFRICAN AMERICAN 74 ML/MIN (>=60); GFR NON AFRICAN AMERICAN 64 ML/MIN (>=60); GLUCOSE, SERUM 97 MG/DL (60-99); POTASSIUM, SERUM 3.9 MMOL/L (3.5-5.3); SODIUM, SERUM 143 MMOL/L (135-148)
[2016-12-16 06:21] LABS: BASOPHILS 0 %; EOSINOPHILS 2.4 %; EOSINOPHILS ABSOLUTE 0.15 10/3/uL (0.0-0.53); HEMOGLOBIN 12.6 g/dL (13.6-17.8); IMMATURE GRANULOCYTES 0.3 %; IMMATURE GRANULOCYTES ABSOLUTE 0.02 10/3/uL (0.0-0.11); LYMPHOCYTES 40.7 %; LYMPHOCYTES ABSOLUTE 2.53 10/3/uL (0.67-4.30); MANUAL DIFF NO %; MEAN CORPUS HGB CONC 34.1 g/dL (32.0-36.0); MEAN CORPUSCULAR HEMOGLOB 30.4 pg (26.0-34.0); MEAN CORPUSCULAR VOLUME 89.2 fL (80-100); MEAN PLATELET VOLUME 11.5 fL (9.2-13.0); MONOCYTES 9.8 %; MONOCYTES ABSOLUTE 0.61 10/3/uL (0.21-1.20); NEUTROPHILS 46.8 %; PLATELET COUNT 151 10/3/uL (150-400); RBC DISTRIBUTION WIDTH 15.7 % (12.0-16.0); RED CELL COUNT 4.15 10/6/uL (4.7-6.1); WHITE BLOOD CELLS 6.2 10/3/uL (4.5-10.5)
[2016-12-16 06:26] LABS: BUN (BLOOD UREA NITROGEN) 18 MG/DL (6-23); CALCIUM, SERUM 8.9 MG/DL (8.5-10.4); CHLORIDE, SERUM 107 MMOL/L (96-112); CO2 (CARBON DIOXIDE) 25 MMOL/L (24-34); CREATININE 1.22 MG/DL (0.70-1.30); GFR AFRICAN AMERICAN 69 ML/MIN (>=60); GFR NON AFRICAN AMERICAN 60 ML/MIN (>=60); GLUCOSE, SERUM 110 MG/DL (60-99); POTASSIUM, SERUM 3.9 MMOL/L (3.5-5.3); SODIUM, SERUM 142 MMOL/L (135-148)
[2016-12-16] MEDS ORDERED: NORV10 PO (10:57)
[2016-12-16] MEDS ORDERED: IMDUR120 PO (10:58)
[2016-12-16] MEDS ORDERED: SPIRO25 PO (10:59)
[2016-12-16] MEDS ORDERED: APRES25 PO (11:00)
[2016-12-16] MEDS ORDERED: IMDUR30 PO (11:10)
[2017-03-07] MEDS ORDERED: SUCR PO (08:57)
[2017-03-07] MEDS ORDERED: CAT1 PO (09:01)
[2017-03-07] MEDS ORDERED: NITROSTAT0.4 MG SL (09:01)
[2017-03-13] MEDS ORDERED: NORV5 PO (17:13)
[2017-03-13] MEDS ORDERED: CAT2 PO (17:17)
[2017-03-13] MEDS ORDERED: IMDUR60 PO (17:18)
[2017-03-13] MEDS ORDERED: HYDRALAZINE100 MG PO (17:21)
[2017-05-04] MEDS ORDERED: HALF81 PO (15:49)
[2017-05-04] MEDS ORDERED: SUCR PO (15:51)
[2017-05-04] MEDS ORDERED: NORV5 PO (15:53)
[2017-05-04] MEDS ORDERED: PLAVIX PO (15:54)
[2017-05-04] MEDS ORDERED: IMDUR60 PO (15:54)
[2017-05-04] MEDS ORDERED: PROTONIX PO (15:55)
[2017-05-04] MEDS ORDERED: CAT2 PO (15:56)
[2017-05-04] MEDS ORDERED: HYDRALAZINE100 MG PO (15:56)
[2017-05-04] MEDS ORDERED: LIPITOR40 PO (15:57)
[2017-05-04] MEDS ORDERED: PAX20 PO (15:57)
[2017-05-04] MEDS ORDERED: RANITIDINE300 MG PO (15:58)
[2017-05-04] MEDS ORDERED: NITROQUICK0.4 MG SL (16:00)
[2017-05-04] MEDS ORDERED: RANEXA1000 MG PO (16:03)
[2017-05-11] MEDS ORDERED: T PO ×2 (10:27→10:28)
[2017-05-11] MEDS ORDERED: LEVSINTAB SL (10:29)
[2017-05-11] MEDS ORDERED: REG5 PO (10:30)
== END 2016-12-16 16:38 | disposition home or self-care (01) | DRG 280 ==
LOC: ER 20:49 → IMCU 23:00 → 6NO 12-14 11:25
PROVIDERS: Hospitalist; Internal Medicine; Internal Medicine Cardiovascular Disease; Nurse Practitioner Family; Specialist
PROC: 4A023N7 Measurement of Cardiac Sampling and Pressure, Left Heart, Percutaneous Approach (ICD-10-PCS; principal; 2016-12-13)
PROC: B2131ZZ Fluoroscopy of Multiple Coronary Artery Bypass Grafts using Low Osmolar Contrast (ICD-10-PCS; 2016-12-13)
PROC: B2181ZZ Fluoroscopy of Left Internal Mammary Bypass Graft using Low Osmolar Contrast (ICD-10-PCS; 2016-12-13)
PROC: B2171ZZ Fluoroscopy of Right Internal Mammary Bypass Graft using Low Osmolar Contrast (ICD-10-PCS; 2016-12-13)
PROC: B2111ZZ Fluoroscopy of Multiple Coronary Arteries using Low Osmolar Contrast (ICD-10-PCS; 2016-12-13)
PROC: B2151ZZ Fluoroscopy of Left Heart using Low Osmolar Contrast (ICD-10-PCS; 2016-12-13)
DX: I11.0 Hypertensive heart disease with heart failure (principal); I21.4 Non-ST elevation (NSTEMI) myocardial infarction; J96.21 Acute and chronic respiratory failure with hypoxia; J81.1 Chronic pulmonary edema; I25.810 Atherosclerosis of coronary artery bypass graft(s) without angina pectoris; J44.1 Chronic obstructive pulmonary disease with (acute) exacerbation; T82.855A Stenosis of coronary artery stent, initial encounter; I45.2 Bifascicular block; F17.210 Nicotine dependence, cigarettes, uncomplicated; I16.0 Hypertensive urgency; I50.43 Acute on chronic combined systolic (congestive) and diastolic (congestive) heart failure; M06.9 Rheumatoid arthritis, unspecified; N20.0 Calculus of kidney; I70.1 Atherosclerosis of renal artery; K21.9 Gastro-esophageal reflux disease without esophagitis; R00.1 Bradycardia, unspecified; I71.2 Thoracic aortic aneurysm, without rupture; N18.2 Chronic kidney disease, stage 2 (mild); I13.0 Hypertensive heart and chronic kidney disease with heart failure and stage 1 through stage 4 chronic kidney disease, or unspecified chronic kidney disease; I73.9 Peripheral vascular disease, unspecified; E78.00 Pure hypercholesterolemia, unspecified; Z95.9 Presence of cardiac and vascular implant and graft, unspecified; Z85.46 Personal history of malignant neoplasm of prostate; Z95.4 Presence of other heart-valve replacement; Z79.4 Long term (current) use of insulin; Z79.82 Long term (current) use of aspirin
CPT/HCPCS: 36600; 71010; 80048; 80053; 81001; 82550; 82553; 82805; 82962; 83735; 83880; 84145; 84443; 84484; 85025; 85347; 85379; 85610; 85730; 87040; 87070; 87205; 87449; 87641; 93005; 93306; 93459; 93975; 94640; 94660; 96374; 99152; 99153; 99291; A9270-GY; C1769; J0360; J1940; J2250; J2405; J2920; J3010; Q9967